=== PATIENT | female | born 1995 | race American Indian/Alaskan Native ===

== ENCOUNTER 2018-02-28 19:21 | Emergency (ER) | payer SELFPAY ==
[2018-02-28 20:09] LABS: Basophils # (Auto) 0.1 K/mm3 (0.0-0.1); Basophils % (Auto) 0.6 % (0.0-1.8); Eosinophils # (Auto) 0.1 K/mm3 (0.0-0.4); Eosinophils % (Auto) 0.5 % (0.0-4.3); Hematocrit 38.1 % (30.3-42.9); Hemoglobin 12.3 gm/dl (10.1-14.3); Lymphocytes # (Auto) 2.9 K/mm3 (1.2-5.4); Lymphocytes % (Auto) 19.6 % (13.4-35.0); Mean Corpuscular HGB Conc 32 % (30-34); Mean Corpuscular Volume 80 fl (79-97); Monocytes # (Auto) 1.3 K/mm3 (0.0-0.8); Monocytes % (Auto) 8.7 % (0.0-7.3); Platelet Count 260 K/mm3 (140-440); Red Blood Count 4.79 M/mm3 (3.65-5.03); Red Cell Distribution Width 13.4 % (13.2-15.2)
[2018-02-28 20:14] LABS: Mean Corpuscular Hemoglobin 26 pg (28-32)
[2018-02-28 20:34] LABS: Alanine Aminotransferase 12 units/L (7-56); Albumin 4.3 g/dL (3.9-5); BUN/Creatinine Ratio 17; Blood Urea Nitrogen 12 mg/dL (7-17); Calcium 9.2 mg/dL (8.4-10.2); Hemolysis Index 11
[2018-02-28 21:01] LABS: Bilirubin,Urine NEG (Negative); Blood,Urine NEG (Negative); Color,Urine Yellow (Yellow); Mucus,Urine 2+ /HPF; Protein,Urine <15 mg/dL mg/dL (Negative); Urobilinogen,Urine < 2.0 mg/dL (<2.0)
--- NOTE | 2018-02-28 23:46 | Emergency Department Report ---
ED Abdominal Pain HPI - General Chief Complaint: Abdominal Pain Stated Complaint: HOT FLASHES/ABD PAIN Time Seen by Provider: 02/28/18 23:31 Source: patient Mode of arrival: Ambulatory Limitations: No Limitations - History of Present Illness Initial Comments: 22-year-old female with no past medical surgical history presents to the hospital with 2 separate chronic and ongoing complaints of a progressively worsening. Plan #1: Headache She has intermittent aching frontal headache for several months that is worsening for the past week. Positive nausea and intermittent vomiting reported. No complaints of fever, blurred vision or focal numbness, focal weakness, or neck pain. Patient also complaining of hot and cold flashes. Complaint #2: Lower abdominal pain Intermittent sharp and pressure-like suprapubic abdominal pain for greater than 1 month. Worse with palpation. Patient states her menstrual cycle earlier this month was accompanied with a white milky discharge. Patient states he acted with one partner and does not use condoms. Denies dysuria Patient came here today after being advised by a family member due to continued complaints. She does not have a primary care doctor. Severity scale (0 -10): 0 - Related Data Previous Rx's Medication Instructions Recorded Last Taken Type Fluconazole [Diflucan TAB] 150 mg PO ONCE #1 tablet 03/01/18 Unknown Rx metroNIDAZOLE [Flagyl] 500 mg PO Q12HR #14 tab 03/01/18 Unknown Rx Allergies Allergy/AdvReac Type Severity Reaction Status Date / Time No Known Allergies Allergy Unverified 02/28/18 19:42 ED Review of Systems ROS: Stated complaint: HOT FLASHES/ABD PAIN Other details as noted in HPI Comment: All other systems reviewed and negative ED Past Medical Hx - Past Medical History Previous Medical History?: No - Surgical History Past Surgical History?: No - Social History Smoking Status: Never Smoker Substance Use Type: None - Medications Home Medications: Home Medications Medication Instructions Recorded Confirmed Last Taken Type Fluconazole [Diflucan TAB] 150 mg PO ONCE #1 tablet 03/01/18 Unknown Rx metroNIDAZOLE [Flagyl] 500 mg PO Q12HR #14 tab 03/01/18 Unknown Rx ED Physical Exam - General Limitations: No Limitations - Other Other exam information: General: No limitations, patient is alert in no acute distress Head exam: Atraumatic, normocephalic Eyes exam: Normal appearance, pupils equal reactive to light, extraocular movements intact ENT: Moist mucous membrane, normal oropharynx Neck exam: Normal inspection, full range of motion, no meningismus nontender Respiratory exam: Clear to auscultation bilateral, no wheezes, rales, crackles Cardiovascular: Normal rate and rhythm, normal heart sounds Abdomen: Soft, nondistended, suprapubic tenderness greatest in the right suprapubic area, with normal bowel sounds, no rebound, or guarding : thick white d/c, fishy odor, minimal cervical motion tenderness, no blood, os closed Extremity: Full range of motion normal inspection no deformity Back: Normal Inspection, full range of motion, no tenderness Neurologic: Alert, oriented x3, cranial nerves intact, no motor or sensory deficit Psychiatric: normal affect, normal mood Skin: Warm, dry, intact ED Course Vital Signs 02/28/18 02/28/18 02/28/18 19:38 23:27 23:30 Temperature 97.5 F L Pulse Rate 98 H Respiratory 17 Rate Blood Pressure 141/82 111/75 Blood Pressure [Left] O2 Sat by Pulse 99 99 100 Oximetry 02/28/18 03/01/18 03/01/18 23:36 00:00 00:30 Temperature 97.9 F Pulse Rate 89 Respiratory 18 Rate Blood Pressure 121/79 111/75 Blood Pressure 111/75 [Left] O2 Sat by Pulse 100 99 99 Oximetry 03/01/18 01:00 Temperature Pulse Rate Respiratory Rate Blood Pressure 137/89 Blood Pressure [Left] O2 Sat by Pulse 99 Oximetry - Reevaluation(s) Reevaluation #1: 02/28/18 23:45 patient declined offer for pain medication. Pending pelvic set up ED Medical Decision Making - Lab Data Result diagrams: 02/28/18 19:58 02/28/18 19:58 Lab Results 02/28/18 02/28/18 02/28/18 Range/Units 19:29 19:58 19:58 WBC 14.7 H (4.5-11.0) K/mm3 RBC 4.79 (3.65-5.03) M/mm3 Hgb 12.3 (10.1-14.3) gm/dl Hct 38.1 (30.3-42.9) % MCV 80 (79-97) fl MCH 26 L (28-32) pg MCHC 32 (30-34) % RDW 13.4 (13.2-15.2) % Plt Count 260 (140-440) K/mm3 Lymph % (Auto) 19.6 (13.4-35.0) % [place] % (Auto) 8.7 H (0.0-7.3) % Eos % (Auto) 0.5 (0.0-4.3) % Baso % (Auto) 0.6 (0.0-1.8) % Lymph # 2.9 (1.2-5.4) K/mm3 [place] # 1.3 H (0.0-0.8) K/mm3 Eos # 0.1 (0.0-0.4) K/mm3 Baso # 0.1 (0.0-0.1) K/mm3 Seg Neutrophils % 70.6 H (40.0-70.0) % Seg Neutrophils # 10.4 H (1.8-7.7) K/mm3 Sodium 140 (137-145) mmol/L Potassium 3.7 (3.6-5.0) mmol/L Chloride 100.8 (98-107) mmol/L Carbon Dioxide 25 (22-30) mmol/L Anion Gap 18 mmol/L BUN 12 (7-17) mg/dL Creatinine 0.7 (0.7-1.2) mg/dL Estimated GFR > 60 ml/min BUN/Creatinine Ratio 17 % Glucose 94 (65-100) mg/dL Calcium 9.2 (8.4-10.2) mg/dL Total Bilirubin 0.40 (0.1-1.2) mg/dL AST 18 (5-40) units/L ALT 12 (7-56) units/L Alkaline Phosphatase 83 (35-129) units/L Total Protein 7.6 (6.3-8.2) g/dL Albumin 4.3 (3.9-5) g/dL Albumin/Globulin Ratio 1.3 % Lipase 24 (13-60) units/L Urine Color Yellow (Yellow) Urine Turbidity Clear (Clear) Urine pH 5.0 (5.0-7.0) Ur Specific [place] 1.021 (1.003-1.030) Urine Protein <15 mg/dl (Negative) mg/dL Urine Glucose (UA) Neg (Negative) mg/dL Urine Ketones Neg (Negative) mg/dL Urine Blood Neg (Negative) Urine Nitrite Neg (Negative) Urine Bilirubin Neg (Negative) Urine Urobilinogen < 2.0 (<2.0) mg/dL Ur Leukocyte Esterase Mod (Negative) Urine WBC (Auto) 5.0 (0.0-6.0) /HPF Urine RBC (Auto) 13.0 (0.0-6.0) /HPF U Epithel Cells (Auto) 30.0 H (0-13.0) /HPF Urine Mucus 2+ /HPF Urine HCG, Qual (Negative) 02/28/18 Range/Units 23:38 WBC (4.5-11.0) K/mm3 RBC (3.65-5.03) M/mm3 Hgb (10.1-14.3) gm/dl Hct (30.3-42.9) % MCV (79-97) fl MCH (28-32) pg MCHC (30-34) % RDW (13.2-15.2) % Plt Count (140-440) K/mm3 Lymph % (Auto) (13.4-35.0) % [place] % (Auto) (0.0-7.3) % Eos % (Auto) (0.0-4.3) % Baso % (Auto) (0.0-1.8) % Lymph # (1.2-5.4) K/mm3 [place] # (0.0-0.8) K/mm3 Eos # (0.0-0.4) K/mm3 Baso # (0.0-0.1) K/mm3 Seg Neutrophils % (40.0-70.0) % Seg Neutrophils # (1.8-7.7) K/mm3 Sodium (137-145) mmol/L Potassium (3.6-5.0) mmol/L Chloride (98-107) mmol/L Carbon Dioxide (22-30) mmol/L Anion Gap mmol/L BUN (7-17) mg/dL Creatinine (0.7-1.2) mg/dL Estimated GFR ml/min BUN/Creatinine Ratio % Glucose (65-100) mg/dL Calcium (8.4-10.2) mg/dL Total Bilirubin (0.1-1.2) mg/dL AST (5-40) units/L ALT (7-56) units/L Alkaline Phosphatase (35-129) units/L Total Protein (6.3-8.2) g/dL Albumin (3.9-5) g/dL Albumin/Globulin Ratio % Lipase (13-60) units/L Urine Color (Yellow) Urine Turbidity (Clear) Urine pH (5.0-7.0) Ur Specific [place] (1.003-1.030) Urine Protein (Negative) mg/dL Urine Glucose (UA) (Negative) mg/dL Urine Ketones (Negative) mg/dL Urine Blood (Negative) Urine Nitrite (Negative) Urine Bilirubin (Negative) Urine Urobilinogen (<2.0) mg/dL Ur Leukocyte Esterase (Negative) Urine WBC (Auto) (0.0-6.0) /HPF Urine RBC (Auto) (0.0-6.0) /HPF U Epithel Cells (Auto) (0-13.0) /HPF Urine Mucus /HPF Urine HCG, Qual Positive A (Negative) - Radiology Data Radiology results: report reviewed Transvaginal /pelvic ultrasound: No discrete uterine mass. Dominant 2.0 x 1.7 x 2.2 cm right ovarian cyst/follicle. Additional subcentimeter bilateral ovarian follicles. - Medical Decision Making Patient states her headaches are mild. Wet prep significant for bacterial vaginosis and yeast treatment will be provided. GC chlamydia pending. Patient is negative for Trichomonas. Although urine was positive for blood test was negative. Ultrasound shows a small ovarian cyst. Outpatient follow- up will be encouraged - Differential Diagnosis cervicitis, vaginitis, migraines, headache NOS, fibroids, ovarian cyst Critical Care Time: No Critical care attestation.: If time is entered above; I have spent that time in minutes in the direct care of this critically ill patient, excluding procedure time. ED Disposition Clinical Impression: BV (bacterial vaginosis), Yeast vaginitis, Headache, Ovarian cyst Disposition: DC-01 TO HOME OR SELFCARE Is pt being admited?: No Does the pt Need Aspirin: No Condition: Stable Instructions: Bacterial Vaginosis (ED), Vulvovaginal Candidiasis (ED) Additional Instructions: Take the medication is prescribed. Do not drink alcohol while taking Flagyl. Take Motrin or Tylenol as needed for pain.Your gonorrhea and chlamydia tests are pending and take approximately 3-4 days result. You may obtain results in medical records with a photo ID. You may also obtain results through the follow -up doctor office via medical record request. Follow-up with the primary care clinic and [facility] doctor provided with a doctor of your choice. Prescriptions: Fluconazole [Diflucan TAB] 150 mg PO ONCE #1 tablet metroNIDAZOLE [Flagyl] 500 mg PO Q12HR #14 tab Referrals: PAVAN PATE MD [Staff Physician] - 3-5 Days ([facility]) [facility] [Provider Group] - 3-5 Days (Primary care clinic) Forms: STI Treatment and Prevention Time of Disposition: 04:38
[2018-02-28 23:52] LABS: HCG Qualitative,Urine Positive (Negative)
[2018-03-01 01:35] LABS: Lipase 24 units/L (13-60)
--- NOTE | 2018-03-01 04:21 | Ultrasound Report ---
FINAL REPORT EXAM: US PELVIC COMPLETE, US TRANSVAGINAL HISTORY: Pelvic pain. TECHNIQUE: Directed transabdominal and transvaginal ultrasound examination of the pelvis was performed. No prior studies are available for comparison. FINDINGS: The uterus is anteverted, and measures approximately 3.8 x 2.9 x 7.5 cm on the transabdominal images. There is no discrete uterine mass. The endometrium measures 7 mm, within normal limits for patient's age. The right ovary measures 3.3 x 2.5 x 3.9 cm, and contains a dominant cyst measuring 2.0 x 1.7 x 2.2 cm. Additional subcentimeter follicles are noted. The left ovary measures 2.7 x 1.6 x 2.8 cm, with subcentimeter follicles. No other adnexal mass is seen. There is no significant pelvic free fluid. IMPRESSION: 1. No discrete uterine mass. Normal appearance of the endometrium. 2. Dominant 2.0 x 1.7 x 2.2 cm right ovarian cyst/follicle. Additional subcentimeter bilateral ovarian follicles.
[2018-03-01 04:47] VITALS: BP 131/75
== END 2018-03-01 04:55 | disposition home or self-care (01) ==
LOC: ED 19:21
DX: O26.899 Other specified pregnancy related conditions, unspecified trimester (principal); B37.3 Candidiasis of vulva and vagina; N83.201 Unspecified ovarian cyst, right side; R51 Headache; Z3A.00 Weeks of gestation of pregnancy not specified
CPT/HCPCS: 36415; 76830; 76856; 80053; 81001; 81025; 83690; 84702; 85025; 86850; 86900; 86901; 87210; 87591; 99284

== ENCOUNTER 2018-06-07 16:55 | Emergency (ER) | payer SELFPAY ==
[2018-06-07 17:38] LABS: Basophils % (Auto) 0.3 % (0.0-1.8); Eosinophils # (Auto) 0.1 K/mm3 (0.0-0.4); Eosinophils % (Auto) 0.6 % (0.0-4.3); Hematocrit 38.3 % (30.3-42.9); Hemoglobin 12.5 gm/dl (10.1-14.3); Lymphocytes # (Auto) 3.4 K/mm3 (1.2-5.4); Lymphocytes % (Auto) 23.3 % (13.4-35.0); Mean Corpuscular HGB Conc 33 % (30-34); Mean Corpuscular Hemoglobin 26 pg (28-32); Mean Corpuscular Volume 80 fl (79-97); Platelet Count 285 K/mm3 (140-440); Red Blood Count 4.82 M/mm3 (3.65-5.03); Red Cell Distribution Width 13.8 % (13.2-15.2)
[2018-06-07 17:55] LABS: Alanine Aminotransferase 10 units/L (7-56); Albumin 4.2 g/dL (3.9-5); BUN/Creatinine Ratio 18; Blood Urea Nitrogen 14 mg/dL (7-17); Calcium 9.8 mg/dL (8.4-10.2); Hemolysis Index 6
--- NOTE | 2018-06-07 22:18 | Emergency Department Report ---
HPI - General Chief Complaint: Abdominal Pain Time Seen by Provider: 06/07/18 21:09 - HPI HPI: 23-year-old AA female presents to the emergency department with complaint of some lower left pelvic pain. The patient has concern for her left ovary and she says that she was seen here for the same in February and diagnosed with an ovarian cyst. She says that she try to follow-up with [facility] but they "did not seem concerned or do anything about it." She denies any fever , nausea, vomiting, vaginal bleeding or discharge. She has not taken anything for her symptoms by presentation. She otherwise denies any past medical history. No recent travel or sick contacts at home. ED Past Medical Hx - Past Medical History Previous Medical History?: No - Surgical History Past Surgical History?: No - Social History Smoking Status: Never Smoker Substance Use Type: None - Medications Home Medications: Home Medications Medication Instructions Recorded Confirmed Last Taken Type Fluconazole [Diflucan TAB] 150 mg PO ONCE #1 tablet 03/01/18 Unknown Rx metroNIDAZOLE [Flagyl] 500 mg PO Q12HR #14 tab 03/01/18 Unknown Rx ED Review of Systems ROS: Stated complaint: LT OVARY PAIN Other details as noted in HPI Comment: All other systems reviewed and negative Constitutional: denies: chills, fever Eyes: denies: eye pain, eye discharge, vision change ENT: denies: ear pain, throat pain Respiratory: denies: cough, shortness of breath, wheezing Cardiovascular: denies: chest pain, palpitations Gastrointestinal: denies: abdominal pain, nausea, diarrhea Genitourinary: other (pelvic pain). denies: dysuria, discharge Musculoskeletal: denies: back pain, joint swelling, arthralgia Skin: denies: rash, lesions Neurological: denies: headache, weakness, paresthesias Physical Exam - Physical Exam Vital Signs: Vital Signs 06/07/18 06/07/18 06/07/18 17:04 21:13 21:16 Temperature 98.1 F 98.4 F Pulse Rate 85 80 74 Respiratory 16 21 20 Rate Blood Pressure 134/79 112/63 O2 Sat by Pulse 99 99 99 Oximetry Physical Exam: GENERAL: The patient is well-developed well-nourished. HENT: Normocephalic. Atraumatic. Patient has moist mucous membranes. EYES: Extraocular motions are intact. NECK: Supple. Trachea is midline. CHEST/LUNGS: Clear to auscultation. There is no respiratory distress noted. HEART/CARDIOVASCULAR: Regular. There is no tachycardia. There is no murmur. ABDOMEN: Abdomen is soft, nontender to palpation. Patient has normal bowel sounds. Obese habitus. SKIN: Skin is warm and dry.. NEURO: The patient is awake, alert, and oriented. The patient is cooperative. The patient has no focal neurologic deficits. The patient has normal speech. MUSCULOSKELETAL: There is no tenderness or deformity. There is no limitation range of motion. There is no evidence of acute injury. ED Course Vital Signs 06/07/18 06/07/18 06/07/18 17:04 21:13 21:16 Temperature 98.1 F 98.4 F Pulse Rate 85 80 74 Respiratory 16 21 20 Rate Blood Pressure 134/79 112/63 O2 Sat by Pulse 99 99 99 Oximetry ED Medical Decision Making - Lab Data Result diagrams: 06/07/18 17:25 06/07/18 17:25 - Radiology Data Radiology results: report reviewed PROCEDURE: US TRANSVAGINAL TECHNIQUE: Real-time transvaginal sonography in multiple planes of the pelvis was performed with image documentation. Grayscale, color flow Doppler imaging and velocity spectral waveform analysis of the ovaries was employed (duplex imaging). CPT 59738 and 82144 HISTORY: pelvic pain COMPARISON: No prior studies are available for comparison. FINDINGS: UTERUS Size: 7.2 x 3.3 x 3.5 cm. Endometrial thickness: 3.2 mm. Orientation: anteverted. Cervix: Normal. Fibroids/masses: None. RIGHT Ovary: 3.6 x 2.1 x 3.6 cm. Appearance: Normal. Doppler images: Normal spectral waveforms and color flow. The systolic and diastolic velocities are within normal limits. LEFT Ovary: 2.9 x 2.3 x 2.2 cm. Appearance: 1.7 centimeter cyst.. Doppler images: Normal spectral waveforms and color flow documented by transabdominal scan. The systolic and diastolic velocities are within normal limits. Pelvic fluid: None. IMPRESSION: Normal uterus and ovaries. Transcribed By: CO Dictated By: TRAVIS ELIAS MD Electronically Authenticated By: TRAVIS ELIAS MD Signed Date/Time: 06/08/18 0104 - Medical Decision Making Patient presents with the complaint of some very mild left lower quadrant abdominal and/or pelvic pain and a history of a left ovarian cyst. Patient's labs have been unremarkable. There is no urinary tract infection and the patient is not . Pelvic ultrasound does not show any signs of any torsion and shows a 1.7 cm left ovarian cyst. Patient's vital signs stable throughout her ED course. She appears safe for discharge home at this time. She has been given multiple referrals for [facility] services and encouraged to return to the emergency Department with any worsening of her symptoms or any acute distress. - Differential Diagnosis ovarian cyst, ovarian torsion, UTI, Critical Care Time: No Critical care attestation.: If time is entered above; I have spent that time in minutes in the direct care of this critically ill patient, excluding procedure time. ED Disposition Clinical Impression: Ovarian cyst Qualifiers: Laterality: left Qualified Code(s): N83.202 - Unspecified ovarian cyst, left side Disposition: - TO HOME OR SELFCARE Is pt being admited?: No Condition: Stable Instructions: Ovarian Cyst (ED) Additional Instructions: Please follow up with an [facility] service. Return to the emergency Department with any worsening of your symptoms or any acute distress. Referrals: [facility] [Provider Group] - 3-5 Days [facility] [Provider Group] - 3-5 Days [facility] [Provider Group] - 3-5 Days [facility] [Outside] - 3-5 Days Time of Disposition: 01:11
[2018-06-08 00:24] LABS: Bilirubin,Urine NEG (Negative); Blood,Urine NEG (Negative); Color,Urine Yellow (Yellow); Mucus,Urine FEW /HPF; Protein,Urine <15 mg/dL mg/dL (Negative); Urobilinogen,Urine < 2.0 mg/dL (<2.0)
[2018-06-08 00:28] LABS: WBC,Urine < 1.0 /HPF (0.0-6.0)
--- NOTE | 2018-06-08 01:05 | Ultrasound Report ---
FINAL REPORT PROCEDURE: US TRANSVAGINAL TECHNIQUE: Real-time transvaginal sonography in multiple planes of the pelvis was performed with image documentation. Grayscale, color flow Doppler imaging and velocity spectral waveform analysis of the ovaries was employed (duplex imaging). CPT 05562 and 34329 HISTORY: pelvic pain COMPARISON: No prior studies are available for comparison. FINDINGS: UTERUS Size: 7.2 x 3.3 x 3.5 cm. Endometrial thickness: 3.2 mm. Orientation: anteverted. Cervix: Normal. Fibroids/masses: None. RIGHT Ovary: 3.6 x 2.1 x 3.6 cm. Appearance: Normal. Doppler images: Normal spectral waveforms and color flow. The systolic and diastolic velocities are within normal limits. LEFT Ovary: 2.9 x 2.3 x 2.2 cm. Appearance: 1.7 centimeter cyst.. Doppler images: Normal spectral waveforms and color flow documented by transabdominal scan. The systolic and diastolic velocities are within normal limits. Pelvic fluid: None. IMPRESSION: Normal uterus and ovaries.
--- NOTE | 2018-06-08 01:06 | Ultrasound Report ---
FINAL REPORT PROCEDURE: US pelvic duplex Doppler TECHNIQUE: Real-time transabdominal sonography in multiple planes of the pelvis was performed with image documentation. Grayscale, color flow Doppler imaging and velocity spectral waveform analysis of the ovaries was employed (duplex imaging). CPT 72069 and 55391 HISTORY: pelvic pain COMPARISON: No prior studies are available for comparison. FINDINGS: UTERUS Size: 7.2 x 3.3 x 3.5 cm. Endometrial thickness: 3.2 mm. Orientation: anteverted. Cervix: Normal. Fibroids/masses: None. RIGHT Ovary: 3.6 x 2.1 x 3.6 cm. Appearance: Normal. Doppler images: Normal spectral waveforms and color flow. The systolic and diastolic velocities are within normal limits. LEFT Ovary: 2.9 x 2.3 x 2.2 cm. Appearance: 1.7 centimeter cyst.. Doppler images: Normal spectral waveforms and color flow documented by transabdominal scan. The systolic and diastolic velocities are within normal limits. Pelvic fluid: None. IMPRESSION: Normal uterus and ovaries.
[2018-06-08 01:26] VITALS: BP 119/86
== END 2018-06-08 01:26 | disposition home or self-care (01) ==
LOC: ED 16:55
DX: N83.202 Unspecified ovarian cyst, left side (principal)
CPT/HCPCS: 36415; 76830; 80053; 81001; 84703; 85025; 93975; 99284

== ENCOUNTER 2019-05-08 01:02 | Emergency (ER) | payer SELFPAY ==
[2019-05-08 02:25] LABS: Bilirubin,Urine NEG (Negative); Blood,Urine NEG (Negative); Color,Urine Yellow (Yellow); Mucus,Urine FEW /HPF; Protein,Urine <15 mg/dL mg/dL (Negative); WBC,Urine < 1.0 /HPF (0.0-6.0)
[2019-05-08 02:34] LABS: Alanine Aminotransferase 11 units/L (7-56); Albumin 4.2 g/dL (3.9-5); BUN/Creatinine Ratio 15; Blood Urea Nitrogen 15 mg/dL (7-17); Calcium 9.3 mg/dL (8.4-10.2); Hemolysis Index 1
[2019-05-08 02:57] LABS: Basophils % (Auto) 0.4 % (0.0-1.8); Eosinophils # (Auto) 0.1 K/mm3 (0.0-0.4); Eosinophils % (Auto) 0.7 % (0.0-4.3); Hematocrit 38.3 % (30.3-42.9); Hemoglobin 12.5 gm/dl (10.1-14.3); Lymphocytes % (Auto) 27.8 % (13.4-35.0); Mean Corpuscular HGB Conc 33 % (30-34); Mean Corpuscular Volume 78 fl (79-97); Monocytes # (Auto) 0.6 K/mm3 (0.0-0.8); Monocytes % (Auto) 5.9 % (0.0-7.3); Platelet Count 298 K/mm3 (140-440); Red Blood Count 4.88 M/mm3 (3.65-5.03); Red Cell Distribution Width 14.2 % (13.2-15.2)
--- NOTE | 2019-05-08 03:54 | Emergency Department Report ---
ED Abdominal Pain HPI - General Chief Complaint: Abdominal Pain Stated Complaint: ABD PAIN Time Seen by Provider: 05/08/19 02:05 Source: patient Mode of arrival: Ambulatory Limitations: No Limitations - History of Present Illness Initial Comments: Patient is a 24-year-old female who presents for abdominal pain 01/25 there is no fever no chill no decrease appietite no giast sssssssssss [id number] Complaint: abdominal pain Onset/Timin -: Gradual, month(s) Time: 03:54 Location: [facility] Radiation: none Migration to: no migration Severity: moderate Severity scale (0 -10): 5 Quality: cramping, aching (I,) Consistency: constant Improves With: nothing Associated Symptoms: nausea. denies: vomiting, diarrhea, fever - Related Data LMP Date: 03/23/19 Previous Rx's Medication Instructions Recorded Last Taken Type Fluconazole [Diflucan TAB] 150 mg PO ONCE #1 tablet 10/17/18 Unknown Rx metroNIDAZOLE [Flagyl TAB] 500 mg PO Q12HR #14 tab 10/17/18 Unknown Rx Dicyclomine [Bentyl] 10 mg PO QID PRN #40 capsule 05/08/19 Unknown Rx Naproxen [Naprosyn] 500 mg PO BID PRN #30 tablet 05/08/19 Unknown Rx Allergies Allergy/AdvReac Type Severity Reaction Status Date / Time petrolatum,white Allergy Rash Verified 06/07/18 17:03 [From Vaseline] ED Review of Systems ROS: Stated complaint: ABD PAIN Other details as noted in HPI Constitutional: denies: chills, fever Eyes: denies: eye pain, eye discharge, vision change ENT: denies: ear pain, throat pain Respiratory: denies: cough, shortness of breath, wheezing Cardiovascular: denies: chest pain, palpitations Endocrine: no symptoms reported Gastrointestinal: abdominal pain, nausea Genitourinary: denies: urgency, dysuria, discharge Musculoskeletal: denies: back pain, joint swelling, arthralgia Skin: denies: rash, lesions Neurological: denies: headache, weakness, paresthesias Psychiatric: denies: anxiety, depression Hematological/Lymphatic: denies: easy bleeding, easy bruising ED Past Medical Hx - Past Medical History Previous Medical History?: No - Surgical History Past Surgical History?: Yes Additional Surgical History: Tonsillectomy - Social History Smoking Status: Never Smoker Substance Use Type: None - Medications Home Medications: Home Medications Medication Instructions Recorded Confirmed Last Taken Type Fluconazole [Diflucan TAB] 150 mg PO ONCE #1 tablet 10/17/18 Unknown Rx metroNIDAZOLE [Flagyl TAB] 500 mg PO Q12HR #14 tab 10/17/18 Unknown Rx Dicyclomine [Bentyl] 10 mg PO QID PRN #40 capsule 05/08/19 Unknown Rx Naproxen [Naprosyn] 500 mg PO BID PRN #30 tablet 05/08/19 Unknown Rx ED Physical Exam - General Limitations: No Limitations General appearance: alert, in no apparent distress - Head Head exam: Present: atraumatic, normocephalic - Eye Eye exam: Present: normal appearance, PERRL, EOMI Pupils: Present: normal accommodation - ENT ENT exam: Present: mucous membranes moist - Neck Neck exam: Present: normal inspection, full ROM. Absent: tenderness, lymphadenopathy, thyromegaly - Respiratory Respiratory exam: Present: normal lung sounds bilaterally. Absent: respiratory distress, wheezes, stridor, chest wall tenderness - Cardiovascular Cardiovascular Exam: Present: regular rate, normal rhythm, normal heart sounds - GI/Abdominal GI/Abdominal exam: Present: soft, tenderness (LLQ pain reproducible to palpation ), normal bowel sounds. Absent: distended, guarding, rebound, bruit, hernia - Rectal Rectal exam: Present: deferred - Extremities Exam Extremities exam: Present: normal inspection, full ROM, normal capillary refill. Absent: tenderness, pedal edema, joint swelling, calf tenderness - Back Exam Back exam: Present: normal inspection, full ROM. Absent: tenderness, CVA tenderness (R), CVA tenderness (L), muscle spasm, paraspinal tenderness, vertebral tenderness, rash noted - Neurological Exam Neurological exam: Present: alert, oriented X3, CN II-XII intact, normal gait. Absent: motor sensory deficit - Psychiatric Psychiatric exam: Present: normal affect, normal mood - Skin Skin exam: Present: warm, dry, intact, normal color. Absent: rash ED Course Vital Signs 05/08/19 05/08/19 05/08/19 01:05 01:31 04:45 Temperature 98.1 F 97.4 F L Pulse Rate 100 H 79 Respiratory 18 18 16 Rate Blood Pressure 154/103 112/80 O2 Sat by Pulse 99 100 Oximetry ED Medical Decision Making - Lab Data Result diagrams: 05/08/19 01:25 05/08/19 01:25 Labs 05/08/19 05/08/19 05/08/19 01:21 01:25 01:25 WBC 10.9 RBC 4.88 Hgb 12.5 Hct 38.3 MCV 78 L MCH 26 L MCHC 33 RDW 14.2 Plt Count 298 Lymph % (Auto) 27.8 Gates % (Auto) 5.9 Eos % (Auto) 0.7 Baso % (Auto) 0.4 Lymph # 3.0 Gates # 0.6 Eos # 0.1 Baso # 0.0 Seg Neutrophils % 65.2 Seg Neutrophils # 7.1 Sodium 139 Potassium 3.6 Chloride 103.1 Carbon Dioxide 23 Anion Gap 17 BUN 15 Creatinine 1.0 Estimated GFR > 60 BUN/Creatinine Ratio 15 Glucose 98 Calcium 9.3 Total Bilirubin < 0.20 AST 14 ALT 11 Alkaline Phosphatase 86 Total Protein 7.5 Albumin 4.2 Albumin/Globulin Ratio 1.3 HCG, Qual Urine Color Yellow Urine Turbidity Clear Urine pH 6.0 Ur Specific [place] 1.021 Urine Protein <15 mg/dl Urine Glucose (UA) Neg Urine Ketones Neg Urine Blood Neg Urine Nitrite Neg Urine Bilirubin Neg Urine Urobilinogen 2.0 Ur Leukocyte Esterase Neg Urine WBC (Auto) < 1.0 Urine RBC (Auto) 1.0 U Epithel Cells (Auto) 4.0 Urine Mucus Few 05/08/19 01:25 WBC RBC Hgb Hct MCV MCH MCHC RDW Plt Count Lymph % (Auto) Gates % (Auto) Eos % (Auto) Baso % (Auto) Lymph # [place] # Eos # Baso # Seg Neutrophils % Seg Neutrophils # Sodium Potassium Chloride Carbon Dioxide Anion Gap BUN Creatinine Estimated GFR BUN/Creatinine Ratio Glucose Calcium Total Bilirubin AST ALT Alkaline Phosphatase Total Protein Albumin Albumin/Globulin Ratio HCG, Qual Negative Urine Color Urine Turbidity Urine pH Ur Specific [place] Urine Protein Urine Glucose (UA) Urine Ketones Urine Blood Urine Nitrite Urine Bilirubin Urine Urobilinogen Ur Leukocyte Esterase Urine WBC (Auto) Urine RBC (Auto) U Epithel Cells (Auto) Urine Mucus - Radiology Data Radiology results: report reviewed, image reviewed interpreted by me: Ordering Physician: SHIMA ODONNELL NP Date of Service: 05/08/19 Procedure(s): XR abdomen 1V ap Accession Number(s): [id number] cc: SHIMA ODONNELL NP Fluoro Time In Minutes: ABDOMEN 1 VIEW INDICATION / CLINICAL INFORMATION: Worsening abdominal pain for one month. Nausea. COMPARISON: None available. FINDINGS: TUBES / LINES: None. BOWEL GAS PATTERN: No significant abnormality. FREE AIR / EXTRALUMINAL GAS: None seen. ADDITIONAL FINDINGS: No significant additional findings. IMPRESSION: No significant abnormality. Signer Name: Peyman Xie MD Signed: 05/08/2019 4:34 AM Workstation Name: [email or web address] Transcribed By: [place] Dictated By: Peyman Xie MD Electronically Authenticated By: Peyman Xie MD Signed Date/Time: 05/08/19433 DD/ 2 TD/TT: - Medical Decision Making abd pain improved, labs normal, ua normal , hcg neg, kub: normal gas pattern, plan dc to home with rx for naproxen po bid prn pain pt is tolerating po intake no nausea no vomiting. no vaginal bleed or discharge no fever or chills, this is likely abd wall strain Critical care attestation.: If time is entered above; I have spent that time in minutes in the direct care of this critically ill patient, excluding procedure time. ED Disposition Clinical Impression: Abdominal wall pain Disposition: DC-01 TO HOME OR SELFCARE Is pt being admited?: No Does the pt Need Aspirin: No Condition: Stable Instructions: Abdominal Pain (ED) Prescriptions: Dicyclomine [Bentyl] 10 mg PO QID PRN #40 capsule PRN Reason: abd spasm Naproxen [Naprosyn] 500 mg PO BID PRN #30 tablet PRN Reason: pain Referrals: SHERWIN KAPOOR MD [Primary Care Provider] - 3-5 Days Forms: Work/School Release Form(ED) Time of Disposition: 05:08
[2019-05-08] MEDS ORDERED: ZOFRAN ODT PO ONE (04:13)
[2019-05-08] MEDS ORDERED: TORADOL IM ONE (04:13)
--- NOTE | 2019-05-08 04:39 | XRay Report ---
ABDOMEN 1 VIEW INDICATION / CLINICAL INFORMATION: Worsening abdominal pain for one month. Nausea. COMPARISON: None available. FINDINGS: TUBES / LINES: None. BOWEL GAS PATTERN: No significant abnormality. FREE AIR / EXTRALUMINAL GAS: None seen. ADDITIONAL FINDINGS: No significant additional findings. IMPRESSION: No significant abnormality. Signer Name: Peyman Xie MD Signed: 05/08/2019 4:34 AM Workstation Name: [email or web address]
[2019-05-08 05:24] VITALS: BP 128/80
== END 2019-05-08 05:24 | disposition home or self-care (01) ==
LOC: ED 01:02
DX: R10.84 Generalized abdominal pain (principal); Z91.09 Other allergy status, other than to drugs and biological substances
CPT/HCPCS: 36415; 74018; 80053; 81001; 84703; 85025; 96372; 99284; J1885; Q0162